=== PATIENT | male | born 1995 | race Caucasian/White ===

== ENCOUNTER → 2022-01-10 | Outpatient (CLI) | payer BC ==
--- NOTE | 2022-01-11 09:51 | US ---
EXAMINATION TYPE: US scrotum with doppler. Grayscale and color Doppler Duplex imaging performed of t tres scrotum. DATE OF EXAM: 01/10/2022 COMPARISON: NONE CLINICAL HISTORY: N50.819 TESTICULAR PAIN. EXAM MEASUREMENTS: TESTICLES: Right Testicle: 4.7 x 2.1 x 3.0 cm Left Testicle: 4.4 x 2.1 x 2.9 cm EPIDIDYMIS HEAD: Right Epididymis: .9 x 1.0 x .9 cm Left Epididymis: .8 x 1.3 x .9 cm Doppler performed to assess for testicular vascularity; good bilateral color flow and waveforms are s een. There is no evidence of testicular torsion. Presence of hydroceles: no Presence of varicoceles: no There may be some mild increased blood flow on the right compared to the left. Consider orchitis if t tres testicular pain is right-sided. IMPRESSION: 1. Flow on the right is greater than on the left. Consider orchitis if testicular pain is right-sided .
== END | disposition home or self-care (01) ==
LOC: RADUSWWP 17:12
PROVIDERS: ATTEND Internal Medicine
DX: N50.819 Testicular pain, unspecified (principal)
CPT/HCPCS: 76870; 93975